=== PATIENT | female | born 1975 | race Caucasian/White ===

== ENCOUNTER 2018-02-25 23:15 | Observation (INO) | payer OTHER ==
[2018-02-25 23:41] VITALS: BP 102/56; PULSE 68; RESP 16; TEMP 97.8; O2SAT 95
[2018-02-25] MEDS ORDERED: ONDANSETRON HCL 4 MG/2 ML VIAL IV PUSH PRN (23:45)
[2018-02-25] MEDS ORDERED: ACETAMINOPHEN 500 MG CPLT PO PRN (23:45)
[2018-02-25] MEDS ORDERED: SODIUM CHLORIDE 0.9% FLUSH 10 ML FLUSH IV FLUSH PRN ×2 (23:45)
[2018-02-26 03:59] VITALS: BP 100/56; PULSE 59; RESP 16; TEMP 98.2; O2SAT 95
[2018-02-26 07:30] VITALS: PULSE 63
[2018-02-26] MEDS ORDERED: ACETAMINOPHEN 500 MG CPLT PO PRN (07:30)
[2018-02-26] MEDS ORDERED: NITROGLYCERIN 0.4 MG SL 25 TABS/BTL SL PRN (07:30)
--- NOTE | 2018-02-26 07:53 | HHI.HP ---
HPI Primary Care Physician Ilan Sethi MD Chief Complaint Chest pain History of Present Illness 42 year old female with 2 pack/day smoking history presents to emergency room for further evaluation of chest tightness. Onset upon awakening yesterday morning described as "not feeling well," nausea, and x1 nonbloody emesis. Proceeded to work a full day and decided to mow her lawn. Endorses she continued to not feel well and developed a frontal headache. Attempted to mow her lawn before developing moderate to severe chest tightness and pressure described as "someone was pushing my back and chest together." The symptoms included dizziness, weakness, and "heart felt like it was flipping." Endorses history of palpations and yesterday's episode did not feel particular fast. Duration of severe chest pressure approx 1.5 hours. No known precipitating or relieving factors. Endorses Nitropaste helped ease the pain somewhat although not completely resolved. Unable to tell if she is still experiencing chest tightness or not, reports "hard to tell." Endorses recent increase stress past 7 weeks. Review of Systems General: No fatigue, weakness, fever, chills, or recent illness. Increase stress x7 week, decreased appetite, increase tobacco use, and #35 weight lost. HEENT: GAYTAN resolved. No vision changes, no nasal congestion or drainage, no dysphasia, or history of GERD CV: As stated above. Dizziness has resolved. RESP: No SOB, wheeze, hemoptysis, or history of asthma. Current smoker, no change in "normal smokers cough." GI: Nausea and vomiting resolved. Loose stools x4 weeks. No pain, distention, melena, or blood in the stool. 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 No suicidal ideation. SKIN: No rashes, no concerning lesions Past Family Social History Allergies: Coded Allergies: penicillin G (Unverified Allergy, Unknown, Anaphylaxis, 02/25/18) Past Medical History None Past Surgical History Cholecystectomy, partial hysterectomy Reported Medications Reported Meds & Active Scripts Active No Active Prescriptions or Reported Medications Active Ordered Medications Current Medications Medications (Trade) Dose Ordered Sig/Maliha Route Start Time Stop Time Status Last Admin (NS Flush) 2 ml UNSCH PRN IV FLUSH 02/25/18 23:45 (NS Flush) 2 ml UNSCH PRN IV FLUSH 02/25/18 23:45 (Tylenol) 500 mg Q4H PRN PO 02/25/18 23:45 02/25/18 23:58 (Zofran Inj) 4 mg Q6H PRN IV PUSH 02/25/18 23:45 (Tylenol) 500 mg Q4H PRN PO 02/26/18 07:30 (Nitrostat Sl) 0.4 mg Q5M PRN SL 02/26/18 07:30 (Aspirin) 325 mg DAILY PO 02/26/18 09:00 Family History Father myocardial infarctions beginning in mid 50s. Social History No known diabetes, hyperlipidemia, hypertension. Current 2 pack day smoker. Rare alcohol use. Denies any illegal drug use. Single. Endorses an active lifestyle. Walks daily between 3-8 miles. Past cardiac testing Remote ETT 5-6 years ago reported to be normal. Physical Exam Vital Signs Vital Signs Date Time Temp Pulse Resp B/P (MAP) Pulse Ox O2 Delivery O2 Flow Rate FiO2 02/26/18 03:59 98.2 59 16 100/56 (71) 95 02/26/18 00:58 16 02/25/18 23:41 97.8 68 16 102/56 (71) 95 Physical Exam GENERAL: Alert WN, WD, NAD, pleasant, obese, female HEAD: NC, AT CV: RRR, without murmur, rub, gallop, no JVD, S1-S2 no S3-S4. RESP: Diminished lungs throughout bilateral, no crackles, wheeze, or rhonchi. Symmetrical chest rise, nonlabored, able to speak in full sentences ABD: Soft, NT, ND, no masses, positive bowel tones EXT: Pulses +2x4, no dependent edema MS: Normal tone x4 extremities, no obvious deformities, full range of motion NEURO: CN II through CN XII grossly intact, motor strength 5/5 PSYCH: A+O x3, flat affect, appropriate speech, mood, insight and judgment SKIN: Normal turgor, normal texture, no lesions, no rashes Laboratory Laboratory Tests Test 5/25/18 02:21 Troponin I LESS THAN 0.02 Imaging Chest x-ray completed in [place] [facility]. Etiology is read as no acute cardiopulmonary disease Course EKG Normal sinus rhythm, normal axis, no ST-T segment change Caprini VTE Risk Assessment Caprini VTE Risk Assessment: No/Low Risk (score <= 1) Caprini Risk Assessment Model Point Value = 1 Point Value = 2 Point Value = 3 Point Value = 5 Age 41-60 Minor surgery BMI > 25 kg/m2 Swollen legs Varicose veins or History of unexplained or recurrent spontaneous Oral contraceptives or hormone replacement Sepsis (< 1 month) Serious lung disease, including pneumonia (< 1 month) Abnormal pulmonary function Acute myocardial infarction Congestive heart failure (< 1 month) History of inflammatory bowel disease Medical patient at bed rest Age 61-74 Arthroscopic surgery Major open surgery (> 45 min) Laparoscopic surgery (> 45 min) Malignancy Confined to bed (> 72 hours) Immobilizing plaster cast Central venous access Age >= 75 History of VTE Family history of VTE Factor V Leiden Prothrombin [id number] Lupus anticoagulant Anticardiolipin antibodies Elevated serum homocysteine Heparin-induced thrombocytopenia Other congenital or acquired thrombophilia Stroke (< 1 month) Elective arthroplasty Hip, pelvis, or leg fracture Acute spinal cord injury (< 1 month) Prophylaxis Regimen Total Risk Factor Score Risk Level Prophylaxis Regimen 0-1 Low Early ambulation 2 Moderate Order ONE of the following: *Sequential Compression Device (SCD) *Heparin 5000 units SQ BID 3-4 Higher Order ONE of the following medications: *Heparin 5000 units SQ TID *Enoxaparin/Lovenox 40 mg SQ daily (WT < 150 kg, CrCl > 30 mL/min) *Enoxaparin/Lovenox 30 mg SQ daily (WT < 150 kg, CrCl > 10-29 mL/min) *Enoxaparin/Lovenox 30 mg SQ BID (WT < 150 kg, CrCl > 30 mL/min) AND/OR *Sequential Compression Device (SCD) 5 or more Highest Order ONE of the following medications: *Heparin 5000 units SQ TID (Preferred with Epidurals) *Enoxaparin/Lovenox 40 mg SQ daily (WT < 150 kg, CrCl > 30 mL/min) *Enoxaparin/Lovenox 30 mg SQ daily (WT < 150 kg, CrCl > 10-29 mL/min) *Enoxaparin/Lovenox 30 mg SQ BID (WT < 150 kg, CrCl > 30 mL/min) AND *Sequential Compression Device (SCD) Assessment and Plan Assessment and Plan #1 Atypical chest pain-admitted chest pain center. Ruled out 3 sets of EKGs, cardiac enzymes, monitor on telemetry overnight. Will be seen and evaluated by Dr. Rj Florez. Discussed likely completing exercise stress test later this morning. If unremarkable, plans to be discharged home with follow-up with PCP. Verbalized understanding and agreeable plan of care. #2 Tobacco use-strongly encouraged and stressed importance of tobacco cessation. Instructed to quit smoking. #3 Situational stress-continue daily exercise, adapting to healthy well balanced diet, increase water intake, tobacco cessation, and getting at least 7- 8 hours of sleep each night. Jewell aRmirez February 26, 2018 07:53
[2018-02-26] MEDS ORDERED: RESP: ALBUTEROL 2.5 MG/3 ML NEB (PRN) NEB (08:00)
[2018-02-26 08:08] VITALS: BP 110/57; PULSE 67; RESP 20; TEMP 97.7; O2SAT 95
[2018-02-26] MEDS ORDERED: ASPIRIN 325 MG TAB PO SCH (09:00)
[2018-02-26 09:20] VITALS: O2SAT 97
--- NOTE | 2018-02-26 10:41 | EKG ---
Date Performed: 02/26/2018 Time Performed: 00:00:25 PTAGE: 42 years EKG: Sinus rhythm NORMAL ECG Since PREVIOUS TRACING , no significant change noted DOCTOR: Rj Florez Interpretating Date/Time 02/26/2018 10:40:09
--- NOTE | 2018-02-26 10:42 | EKG ---
Date Performed: 02/26/2018 Time Performed: 01:15:51 PTAGE: 42 years EKG: Sinus rhythm NORMAL ECG Since PREVIOUS TRACING , no significant change noted DOCTOR: Rj Florez Interpretating Date/Time 02/26/2018 10:41:46
[2018-02-26 12:05] VITALS: BP 112/57; PULSE 70; RESP 16; TEMP 97.9; O2SAT 97
--- NOTE | 2018-02-26 12:58 | HHI.DCPOC ---
Discharge Care Plan Diagnosis: (1) Atypical chest pain (2) Situational stress (3) Tobacco abuse Goals to Promote Your Health * To prevent worsening of your condition and complications * To maintain your health at the optimal level Directions to Meet Your Goals Take your medications as prescribed Follow your dietary instruction Follow activity as directed Keep your appointments as scheduled Take your immunizations and boosters as scheduled If your symptoms worsen call your PCP, if no PCP go to Urgent Care Center or Emergency Room Smoking is Dangerous to Your Health. Avoid second hand smoke Call the 24-hour hour crisis hotline for domestic abuse at Jewell Ramirez February 26, 2018 12:58
--- NOTE | 2018-02-26 13:55 | TR ---
Date Performed: 02/26/2018 Time Performed: 12:24:27 DOCTOR: Rj Florez DRUG LIST: CLINICAL HISTORY: REASON FOR TEST: REASON FOR ENDING: OBSERVATION: CONCLUSION: Ilan protocol completed. Stopped sec to reaching target heart rate and leg fatigue. Maximum OB=986 Target HR Imdlptkh=604.0% Maximum PD=242/56 Total Exercise Time=9:25. No reprod chest discomfort. No ectopy. No st t segment changes. Artifact began in stage 2, V6 disconnected. Normal b p response. Good exercise tolerance. Recovery quick and unremarkable. COMMENTS: Conclusion: Normal treadmill exercise. No evidence of ischemia.
--- NOTE | 2018-02-26 13:58 | EKG ---
Date Performed: 02/26/2018 Time Performed: 08:00:33 PTAGE: 42 years EKG: Sinus rhythm NORMAL ECG PREVIOUS TRACING : 02/25/2018 18.32 Since previous tracing, no significant change noted DOCTOR: Rj Florez Interpretating Date/Time 02/26/2018 13:56:20
== END 2018-02-26 16:28 | disposition home or self-care (01) ==
LOC: NEDDLT 23:15 → NEPFCDU 23:25
PROVIDERS: ADMIT Internal Medicine Interventional Cardiology; ATTEND Internal Medicine Interventional Cardiology
DX: R07.89 Other chest pain (principal); F17.210 Nicotine dependence, cigarettes, uncomplicated; Z79.82 Long term (current) use of aspirin; Z71.6 Tobacco abuse counseling
CPT/HCPCS: 71046; 80053; 82550; 82552; 83690; 83735; 84484; 85025; 85610; 85730; 93005; 93017; 94664; 96360; 99285; G0378; J7030; J7613

== ENCOUNTER 2018-03-28 18:48 | Emergency (ER) | payer SELFPAY ==
[~2018-03-28] VITALS: Ht 157.5 cm; Wt 87.6 kg
[2018-03-28 18:51] VITALS: BP 113/71; PULSE 81; RESP 16; TEMP 97.9; O2SAT 97
--- NOTE | 2018-03-28 19:12 | PD ---
HPI Chief Complaint: Laceration/Skin Injury Time Seen by Provider: 18:59 Travel History International Travel<30 days: No Contact w/Intl Traveler<30days: No Traveled to known affect area: No History of Present Illness HPI 43-year-old bbewk-lhty-mugvpegm female presents the ED for evaluation of 10/10 right fifth finger pain. Onset just before arrival. Throbbing in quality. Worsened by touch and range of motion. No alleviating factors reported. Patient states that she was moving a washing machine with her dad and her hand was caught between the machine and a door. She denies numbness, tingling, weakness of the extremity. She endorses limitations to range of motion secondary to pain. She has never injured the digit before. Unsure of her last tetanus immunization. No treatment attempted before arrival. PFSH Past Medical History Heart Rhythm Problems: No Cardiac Catheterization: No Cardiovascular Problems: No High Cholesterol: No Congestive Heart Failure: No COPD: Yes Diabetes: No Diminished Hearing: No Respiratory: Yes (copd) Immunizations Current: Yes Tetanus Vaccination: < 5 Years Influenza Vaccination: Yes ?: Not : 9 Para: 3 Miscarriage: 6 Past Surgical History Cardiac Surgery: Yes (heart cath) Cholecystectomy: Yes Coronary Artery Bypass Graft: No Hysterectomy: Yes Social History Alcohol Use: Yes (SOCIALLY) Tobacco Use: Yes (1 pk) Substance Use: No Allergies-Medications (Allergen,Severity, Reaction): Coded Allergies: penicillin G (Unverified Allergy, Unknown, Anaphylaxis, 03/28/18) Reported Meds & Prescriptions Reported Meds & Active Scripts Active No Active Prescriptions or Reported Medications Review of Systems Except as stated in HPI: all other systems reviewed are Neg Physical Exam Narrative GENERAL: Well-nourished, well-developed white female no acute distress. SKIN: Focused skin assessment warm/dry. HEAD: Normocephalic. EYES: No scleral icterus. No injection or drainage. NECK: Supple, trachea midline. No JVD or lymphadenopathy. CARDIOVASCULAR: Regular rate and rhythm without murmurs, gallops, or rubs. RESPIRATORY: Breath sounds equal bilaterally. No accessory muscle use. GASTROINTESTINAL: Abdomen soft, non-tender, nondistended. MUSCULOSKELETAL: No cyanosis, or edema. FOCUSED RIGHT UPPER EXTREMITY EXAM: 2+ radial pulse. Superficial laceration on the palmar aspect of the proximal fifth digit. Some tender edema of the PIP joint. No tenderness to palpation of the remaining joints of the hand. Strong finger to thumb opposition with each digit. Patient retains full, active ROM of the digits of the hand. Neurovascularly intact distally with each finger. BACK: Nontender without obvious deformity. No CVA tenderness. Data Data Last Documented VS Vital Signs Date Time Temp Pulse Resp B/P (MAP) Pulse Ox O2 Delivery O2 Flow Rate FiO2 03/28/18 18:51 97.9 81 16 113/71 (85) 97 Orders Orders Tetanus/Diphtheria Tox Adult (Tetanus/Di (03/28/18 19:15) Lidocaine Pf 1% Inj (Xylocaine-Mpf 1% In (03/28/18 19:15) Finger (Ich7pyx) (03/28/18 19:09) Ice/Cold Pack (03/28/18 19:09) Ibuprofen (Motrin) (03/28/18 20:00) Ed Discharge Order (03/28/18 20:28) MDM Medical Decision Making Medical Screen Exam Complete: Yes Emergency Medical Condition: Yes Differential Diagnosis Laceration versus fracture versus open fracture versus need for tetanus immunization versus other Narrative Course 43-year-old sobnb-[id number] female presents the ED for evaluation of 10/10 right fifth finger pain. . Patient states that she was moving a washing machine with her dad and her hand was caught between the machine and a door. Unsure of last tetanus immunization. Vitals reviewed. Physical exam reveals a superficial laceration on the proximal palmar aspect of the fifth digit. Tender stimulation was updated. X-ray reveals no acute bony injury. Digital block was performed with 1% lidocaine. A total of 2 mL's medication was administered. Adequate anesthesia was obtained. I explored the wound which appears very superficial. No sutures needed. Patient was given detailed wound care instructions. She is instructed to continue with OTC medications as needed for pain, ice the extremity as needed, return to normal, gentle activity , monitor for signs of infection. Patient indicated understanding of instructions and is agreeable to the care plan. The patient is stable and discharged home. Diagnosis Primary Impression: Laceration of finger of right hand Qualified Codes: S61.216A - Laceration without foreign body of right little finger without damage to nail, initial encounter Referrals: Hand Surgeon Primary Care Physician Additional Instructions: Rest, ice, elevate the extremity. Apply ice no longer than 10-15 minutes per hour a few times a day. 600 mg ibuprofen up to 3 times a day as needed for pain. Return to normal, gentle activity as tolerated. Keep the wound clean, dry and covered. Do not submerge the wound for the next 3-5 days. You may allow water to run over that area and wash gently with soap. Allow the wound to air dry 5-10 minutes and apply a small amount of Neosporin before applying a clean dry bandage. Change the bandage anytime it becomes wet or soiled. Monitor for signs of infection as discussed. Follow-up with a primary care provider. Return to the ED for any urgent or emergent medical condition. Scripts No Active Prescriptions or Reported Meds Disposition: 01 DISCHARGE HOME Condition: Stable Katherine Sykes Mar 28, 2018 19:12
[2018-03-28] MEDS ORDERED: TETANUS/DIPHTHERIA TOXOID ADULT 0.5 ML VIAL IM ONE (19:15)
[2018-03-28] MEDS ORDERED: LIDOCAINE HCL 1% PF 30 ML VIAL INFIL ONE (19:15)
[2018-03-28] MEDS ORDERED: IBUPROFEN 800 MG TAB PO ONE (20:00)
--- NOTE | 2018-03-28 20:04 | RADRPT ---
EXAM DATE: 03/28/2018 7:43 PM EDT AGE/SEX: 43 years / Female INDICATIONS: Pain in right 5th PIP joint after smashing finger between a washer and a door while she was moving the washer. CLINICAL DATA: This is the patient's initial encounter. Patient reports that signs and symptoms have been present for 1 day and indicates a pain score of 10/10. MEDICAL/SURGICAL HISTORY: None. None. COMPARISON: No prior exams available for comparison. FINDINGS: Bony structures are intact and in normal alignment. Joints are intact without dislocation or signifi cant arthropathy. Osseous density is normal. Soft tissues are swollen. No radiopaque foreign bodies seen. CONCLUSION: Soft tissue swelling of the fifth finger. No acute bony abnormality. Electronically signed by: Won Levin MD 03/28/2018 8:03 PM EDT
== END 2018-03-28 20:36 | disposition home or self-care (01) ==
LOC: PHEFT 18:48
DX: S61.216A Laceration without foreign body of right little finger without damage to nail, initial encounter (principal); J44.9 Chronic obstructive pulmonary disease, unspecified; F17.210 Nicotine dependence, cigarettes, uncomplicated; W23.1XXA Caught, crushed, jammed, or pinched between stationary objects, initial encounter; Z23 Encounter for immunization
CPT/HCPCS: 64450; 73140; 90471; 90714